=== PATIENT | female | born 1945 | race Caucasian/White ===

== ENCOUNTER 2019-12-25 06:26 | Inpatient (IN) ==
--- NOTE | 2019-12-13 08:27 | ANES ---
Anesthesia Pre Procedure Eval HOME MEDICATIONS alprazolam 1 mg tablet 1 mg PO QID PRN tab 11/08/19 [Last Taken Unknown] carbidopa ER 50 mg-levodopa 200 mg tablet,extended release tab PO 11/08/19 [Last Taken Unknown] diclofenac sodium 1 % topical gel g TP 11/08/19 [Last Taken Unknown] duloxetine 60 mg capsule,delayed release cap PO 11/08/19 [Last Taken Unknown] folic acid 1 mg tablet 1 mg PO DAILY tab 11/08/19 [Last Taken Unknown] losartan 100 mg-hydrochlorothiazide 12.5 mg tablet 1 tab PO DAILY tab 11/08/19 [Last Taken Unknown] meloxicam 7.5 mg tablet 7.5 mg PO DAILY tab 11/08/19 [Last Taken Unknown] methotrexate sodium 2.5 mg tablet 15 mg PO QWEEK tab 11/08/19 [Last Taken Unknown] pantoprazole 40 mg tablet,delayed release 40 mg PO DAILY tab 11/08/19 [Last Taken Unknown] pravastatin 40 mg tablet 40 mg PO DAILY tab 11/08/19 [Last Taken Unknown] prochlorperazine maleate 10 mg tablet 20 mg PO PRN tab 11/08/19 [Last Taken Unknown] selegiline HCl 5 mg capsule 5 mg PO cap 11/08/19 [Last Taken Unknown] tramadol 50 mg tablet 50 mg PO DAILY PRN tab 11/08/19 [Last Taken Unknown] trazodone 150 mg tablet See Rx Instructions .ROUTE .COMPLEX 11/08/19 [Last Taken Unknown] Allergies/Adverse Reactions: Allergies Allergy/AdvReac Type Severity Reaction Status Date / Time cyclosporine Allergy Verified 11/08/19 11:58 Penicillins Allergy Verified 11/08/19 11:58 Sulfa (Sulfonamide Allergy Verified 11/08/19 11:58 Antibiotics) - Planned Procedure Planned Procedure: R Arthroplasty Total Knee Medication List Reviewed:: Yes Allergies Verified: Yes Medical History (Last Reviewed 12/13/19 @ 08:26 by Lopez Alberto CRNA) Allergies Joint pain Pain Panic attack Psoriasis Skin cancer Surgical History (Last Reviewed 12/13/19 @ 08:26 by Lopez Alberto CRNA) History of oophorectomy, unilateral Onset Date: ~1993 Family History (Last Reviewed 12/13/19 @ 08:26 by Lopez Alberto CRNA) Mother Diabetes Heart disease Father Myocardial infarction - Family Anesthesia History Family History:: no untoward family reactions to anesthesia - Airway/Neck/Teeth Denture Type: Full upper - Respiratory Smoking Status: Former smoker Sleep Apnea currently treated: No Sleep Apnea by current assessment: No - Cardiovascular Tolerate Activity: Fair - Gastrointestinal NPO since: mn - Anesthesia Assessment and Plan ASA Class: PS, III Anesthesia Type Plan: Spinal Planned difficult intubation/equipment available: No - adductor canal block
[~2019-12-25 06:26] MED LIST: MORPHINE SULFATE 15 MG TABLET.SA PO PRN; RINGER'S SOLUTION,LACTATED 1,000 ML IV PRN; ROPIVACAINE HCL/PF 100 MG, EPINEPHrine 0.2 MG, KETOROLAC TROMETHAMINE 30 MG in NORMAL S... IJ PRN; TRANEXAMIC ACID 1,000 MG in NORMAL SALINE 100 ML IV PRN; ceFAZolin SODIUM 1 GM VIAL IV PRN
[2019-12-25] MEDS ORDERED: PROPOFOL VIAL IV ONE (06:51)
[2019-12-25] MEDS ORDERED: MIDAZOLAM HCL/PF 5 MG/ML VIAL ONE (06:51)
[2019-12-25] MEDS ORDERED: BUPIVACAINE HCL/EPINEPHRINE 50 ML VIAL ONE (06:52)
[2019-12-25] MEDS ORDERED: ISOPROPYL ALCOHOL 480 APPL BTL MC ONE (07:07)
[2019-12-25] MEDS ORDERED: ceFAZolin SODIUM 1 GM VIAL ONE (07:07)
--- NOTE | 2019-12-25 10:33 | OR ---
Operative Report - Dictated Report Narrative: Date: 12/25/2019 Preoperative diagnosis: Right knee degenerative joint disease. Postoperative diagnosis: Right knee degenerative joint disease. Procedure: Right total knee arthroplasty. Repair of skin tear right lower leg Surgeon: Fortunato Hyde M.D. Ice Handler: Huseyin Prajapati PA-C (provided and essential set of skilled, educated hands that assisted with transfer, positioning, prepping, draping, manipulation, retraction, placement of jigs, injection, insertion of implants, irrigation, closure wounds, and dressings all of which could not be performed by the available surgical crew) Anesthesia: Spinal with regional block and local periarticular joint injection. Complications: Skin tear right lower leg Specimens: Bone. Estimated blood loss: Minimal. Tourniquet time: 73 minutes at 300 millimeters of mercury. Retained implants: Depuy Attune size 5 right lugged cemented posterior stabilized femoral component. Size 5 fixed-bearing cemented tibial platform. 5 by 5 millimeter posterior stabilized cross-linked tibial insert. 35 millimeter medialized patella button. Indications: Mrs. Stephen is a 74-year-old female who has had longstanding right knee pain and arthrosis. This patient was followed in my clinic for period of time with significant complaints of right knee pain consistent with arthritic changes. She had failed conservative measures including, but not limited to, activity modification, passage of time, medications, and other conservative m easures. Patient wished to proceed with surgical treatment. The risks, benefits, and alternatives were discussed in clinic. The risks of , blood clots, bleeding, infection, nerve/tendon blood vessel/ injury, malposition of components, intraoperative fracture, postoperative limited range of motion, persistent pain, failure of components, and need for additional procedures. Patient wished to proceed consent was obtained after answering all questions. Procedure: After marking the correct extremity on the floor, the patient was taken to the operating room. A timeout was performed. IV antibiotics consisting of Ancef were administered prior to the procedure. A regional followed by spinal anesthetic was induced by anesthesia, per my request, on the operative table with all bony prominences well-padded. Fierro catheter was placed, and a bump was placed under the operative side buttock. SCDs and HODAN hose were utilized on the nonoperative leg. A well-padded tourniquet was applied to the operative thigh. The operative leg was then pre-scrubbed with alcohol, prepped, and draped in a standard sterile fashion. After exsanguinating the extremity with an Esmarch bandage, the tourniquet was inflated. After marking out the anterior knee for standard incision centered over the patella, the skin was incised and dissected down to the joint retinaculum. The joint retinaculum was marked out as well as the horizontal axis of the patella, and a standard medial parapatellar arthrotomy was then made. The most proximal aspect of the quadriceps tendon and the patella tendon insertion were protected from release. A partial synovectomy was performed as well as a resection of the infrapatellar fat pad. The distal femoral fat pad proximal to the trochlea was also resected using cautery. The soft tissues were elevated off the medial aspect of the proximal tibia using a Giles elevator ensuring that we did not transect the medial collateral ligament. Upon initial evaluation range of motion was approximately 0 degrees to 125 degrees of flexion. There were signs of advanced arthrosis in the lateral and patellofemoral greater than medial joint spaces. There were large marginal osteophytes which were removed with a rongeur. The knee was hyperflexed and the patella was tucked laterally. Protecting the surrounding soft tissues with Homans, an entry drill was placed down the femoral canal using Whitesides line for guidance into the entry point. The intramedullary femoral alignment ethan was utilized in order to cut the distal femur in 5 degrees of valgus resecting 10 millimeters of bone. Next the distal femur was sized to a size 5. A posterior referencing guide was utilized to place the distal femoral cutting block in 3 degrees of external rotation. This was pinned into place. The rotation was confirmed both visually and based on anatomic landmarks. The 4 in 1 cutting jig of the appropriate size was utilized in order to make all bony cuts. The kendall wing was used to ensure no notching. Retractors were utilized in order to protect surrounding soft tissues. This cut did not result in any excessive notching. We then cut the box centered over the distal femur. This allowed for resection of the anterior and posterior cruciate ligaments. I then turned my attention to the preparation of the tibia. Using an extra medullary tibial alignment ethan, 5 millimeters of bone was resected off the medial articular surface. This was made perpendicular to the mechanical axis of the joint with the alignment ethan centered over the ankle mortise. The alignment ethan was checked and was noted to be parallel to the mechanical axis, centered over the medial one third of the tibial tubercle, paralleling the anterior surface of the tibia. We then turned our attention to the remaining meniscus and soft tissues. These were removed while protecting the surrounding ligaments and soft tissues. The marginal osteophytes off the anterior, posterior, medial, lateral aspects of the femur and tibia were removed. The tibia was sized out to a size 5. Next the tibia was drilled and punched in an externally rotated position. Next the trial femur and a series of tibial inserts were utilized in order to allow for full extension and maximal flexion. It was found that a 5 millimeter insert gave the best range of motion and stability at multiple flexion points as well as at full extension there was less than 2 mm of gapping both medially and laterally. There is minimal anterior translation with the knee at 90 degrees of flexion and no signs of being able to dislocate the knee. The patella was then prepared. The initial thickness was 22 millimeters. This was reamed down to 12 millimeters parallel to the anterior surface of the patella. It was sized out to a size 35 medialized patella button. This was then drilled and trialed. Without any medial restraint the patella tracked appropriately and did not sublux or dislocate. At this point, it was felt these were the appropriate sized implants, and all trials were removed. The standard periarticular joint injection consisting of ropivacaine, Toradol, and epinephrine were injected into the periarticular joint tissues. The bony surfaces were thoroughly irrigated with a pulsatile-suction saline irrigation device. A bone plug from the prior resected anterior chamfer cut was placed into the drill hole at the distal femur. The bony surfaces were then dried in preparation for placement of the implants. The cement was vacuum mixed per the repair clerk's instructions. The cement was placed on the dry bony surfaces and posterior aspect of the implants. The implants were impacted into place, removing all extruded cement. At this point anesthesia administered tranexamic acid per protocol intravenously. The knee was placed in extension with axial loading with the trial insert while the cement cured. Once the cement cured, all remaining extruded cement was removed. The knee was placed through a range of motion with the trial insert to ensure appropriate range of motion and stability. Final range of motion was approximately 0 to 125 degrees. The knee was again thoroughly irrigated with pulsatile saline lavage. The final polyethylene insert was then impacted into place ensuring no retained soft tissues. The remaining periarticular joint injection was injected. A medium Hemovac drain was placed exiting superior laterally. The knee was then placed over a triangle and the arthrotomy was closed with interrupted #1 Vicryl after thoroughly irrigating the joint. The deep and subcutaneous tissues were closed with interrupted 0 and 3-0 Vicryl respectively. When removing the stockinette over the lower leg it was noted that there was a long large skin tear from the mid tibia down to the ankle. It was quite concerning as her skin was very fragile and we repaired what we could with interrupted 4-0 nylon and the remaining exposed tissue was covered with Xeroform and Telfa. There were no exposed tendons or deep structures after closing the proximal and distal portion of the wounds. This appeared to be a sloughing of the skin superficially in the exposed area. The knee skin was closed with a running subcutaneous 3-0 Monocryl and Prineo Dermabond dressing. 4 x 4's, Sof-Rol, and a full leg Bryan wrap were applied. All sponge, needle, blade, and instrument counts were correct prior to closing the wounds. Postoperative condition: The patient was awoken and transferred to the postanesthesia care unit in stable condition. Plan is to be admitted to the inpatient medical/surgical floor postoperatively for 24 hours of IV antibiotics, physical therapy, occupational therapy, and medical comanagement. Patient will be weightbearing as tolerated with range of motion as tolerated. DVT prophylaxis will be with SCDs, HODAN hose, and pharmacological anticoagulation. Anticipated hospital stay is approximately 1-3 days.
[2019-12-25] MEDS ORDERED: ACETAMINOPHEN 500 MG TABLET PO PRN (10:34)
[2019-12-25] MEDS ORDERED: ZOLPIDEM TARTRATE 5 MG TABLET PO PRN (10:34)
[2019-12-25] MEDS ORDERED: MAGNESIUM HYDROXIDE 30 ML UDC PO PRN (10:34)
[2019-12-25] MEDS ORDERED: MORPHINE SULFATE 2 MG/ML DISP.SYRIN IV PRN (10:34)
[2019-12-25] MEDS ORDERED: MAG HYDROX/ALUMINUM HYD/SIMETH 30 ML UDC PO PRN (10:34)
[2019-12-25] MEDS ORDERED: ONDANSETRON HCL/PF 2 MG/ML VIAL IV PRN (10:34)
[2019-12-25] MEDS ORDERED: diphenhydrAMINE HCL 50 MG/ML VIAL IV PRN (10:34)
[2019-12-25] MEDS ORDERED: PROCHLORPERAZINE MALEATE 10 MG TABLET PO PRN (10:36)
--- NOTE | 2019-12-25 10:48 | ANES ---
Anesthesia Procedure Note Procedure Note: ANESTHESIA PROCEDURE NOTE Date of Procedure: 12/25/2019 Time of procedure: 8:10 AM. Performed by: MICHAEL Kamara CRNA, MSN Kennel Manager Dog Track: Carmel Corbett RN. Preprocedure diagnosis: Post knee surgery pain. Post procedure diagnosis: Same. Procedure: Right adductor Canal Block. Indications: Post right total knee arthroplasty pain relief. Findings: See below. Details of the procedure: The patient was brought to OR #4 and placed in supine position. The patient's right femoral area to the knee was prepped with chlorhexidine and using ultrasound guidance the right femoral artery and nerve was identified and then followed to the level of the adductor canal. Lidocaine 1% was infiltrated to the skin of the intended injection site. Under ultrasound guidance the saphenous nerve was approached with visualization of a 4 inch shielded block needle. Once saphenous nerve was identified with proximity to the needle tip, the saphenous nerve was surrounded with 20 mL bupivacaine 0.25% with 1-200,000 epinephrine. Please see radiology/ultrasound report for details and retained images of the procedure. EBL: 0 Fluids: N/A. Specimen: N/A. Post procedure condition: The patient tolerated the procedure well. No complications were noted. Thank you for this consultation. Babak Rubio CRNA, ARNP, MSN
--- NOTE | 2019-12-25 10:48 | ANES ---
Post Anesthesia Discharge - Transfer of Care Transfer of Care handoff given to nurse: Yes - Discharge from PACU Discharge from PACU when meets criteria: Yes - Awake and comfortable.
--- NOTE | 2019-12-25 11:24 | ANES ---
Post Anesthesia Assessment - Vital Signs Vitals: Last Vital Signs Temp 36.0 C 12/25/19 11:05 Pulse 103 H 12/25/19 11:05 Resp 18 12/25/19 11:05 BP 143/67 12/25/19 11:05 Pulse Ox 98 12/25/19 11:05 Airway Patency: Normal - Mental Status Level Of Consciousness: Awake, Alert, Appropriate - Pain Level Pain Score: 0 - N/V Assessment Nausea/Vomiting Presence: None Dehydration:: No
[2019-12-25] MEDS: KETOROLAC TROMETHAMINE 15 MG/ML VIAL IV SCH ×2 (11:31→18:10)
[2019-12-25] MEDS: ALPRAZolam 1 MG TABLET PO PRN (11:31)
[2019-12-25] MEDS: DEXTROSE 5%-LACTATED RINGERS 1,000 ML IV PRN ×2 (11:31→22:27)
[2019-12-25] MEDS: ceFAZolin SODIUM 1 GM in DEXTROSE 5 % IN WATER 100 ML IV SCH ×4 (12:07→19:41)
[2019-12-25] MEDS: oxyCODONE HCL/ACETAMINOPHEN 1 TAB TABLET PO PRN (19:43)
[2019-12-25] MEDS: SENNOSIDES/DOCUSATE SODIUM 1 TAB TABLET PO SCH (21:13)
[2019-12-25] MEDS: CARBIDOPA/LEVODOPA CR 50/200 1 TAB TABLET.SA PO SCH (21:14)
[2019-12-26] MEDS: KETOROLAC TROMETHAMINE 15 MG/ML VIAL IV SCH ×4 (00:49→17:13)
[2019-12-26] MEDS: ceFAZolin SODIUM 1 GM in DEXTROSE 5 % IN WATER 100 ML IV SCH ×2 (00:52)
[2019-12-26] MEDS: oxyCODONE HCL/ACETAMINOPHEN 1 TAB TABLET PO PRN ×3 (01:07→19:17)
[2019-12-26 06:47] LABS: Hematocrit 40.4 % (37.0-47.0); Hemoglobin 12.3 gm/dL (12.5-16.0); Mean Cell Volume 98.3 fl (78-100); Mean Corpuscular Hemoglobin 29.9 pg (27-31); Mean Corpuscular Hgb Conc 30.4 g/dl (32-36); Mean Platelet Volume 10.1 fl (8-12.5); Platelet Count 401 K/mm3 (150-450); Red Blood Count 4.11 M/mm3 (4.2-5.4); Red Cell Distribution Width 15.3 % (11.5-14.0); White Blood Count 9.3 K/mm3 (4.0-10.5)
[2019-12-26] MEDS: PANTOPRAZOLE SODIUM 40 MG TABLET.EC PO SCH (06:51)
[2019-12-26 06:54] LABS: Anion Gap 9.7 mmol/L (6.8-13.8); BUN/Creatinine Ratio 10.3 (9.0-21.6); Calcium * 8.6 mg/dL (7.9-10.9); Estimated Creat Clear 44.9; Potassium 3.7 mmol/L (3.4-4.6)
[2019-12-26] MEDS: DULoxetine HCL 30 MG CAPSULE.SA PO SCH (08:53)
[2019-12-26] MEDS: FOLIC ACID 1 MG TABLET PO SCH (08:53)
[2019-12-26] MEDS: SIMVASTATIN 20 MG TABLET PO SCH (08:54)
[2019-12-26] MEDS: ENOXAPARIN SODIUM 40 MG/0.4 ML SYRG SC SCH (08:54)
[2019-12-26] MEDS: LOSARTAN POTASSIUM 50 MG TABLET PO SCH (08:54)
[2019-12-26] MEDS: ALPRAZolam 1 MG TABLET PO PRN (09:00)
[2019-12-26] MEDS: SELEGILINE HCL 5 MG PO SCH (09:09)
[2019-12-26] MEDS: HYDROCHLOROTHIAZIDE 12.5 MG CAPSULE PO SCH (09:13)
[2019-12-26] MEDS: CARBIDOPA/LEVODOPA CR 50/200 1 TAB TABLET.SA PO SCH ×2 (09:14→21:19)
--- NOTE | 2019-12-26 15:27 | PN ---
Subjective - Date and Time Seen Date: 12/26/19 Time: 15:21 Subjective Narrative: Subjective: Reports mild pain. Per nursing she was having some difficulty swallowing. Was able to transfer with therapy. Voiding without any complications. Denies any nausea or vomiting. Denies calf pain. Slept well. Physical exam: Alert and oriented to person, place and time Right lower extremity: Palpable dorsalis pedis pulse. Sensation grossly intact to light touch. Dressings clean and dry. Able to flex and extend ankle and toes. No excessive drainage. Calf and thigh are soft and nontender. Assessment: Postop day 1 status post right total knee arthroplasty. Plan: Due to the need for pain control, post-operative limited mobility, protection of the surgical site and joint, monitoring of the wound, and the management of chronic medical conditions, she requires continued inpatient care. Continue with physical and occupational therapy weightbearing as tolerated. Continue with anticoagulation. 24 hours postoperative prophylactic antibiotics. Pain control with goal to rely on oral medications. Continue bowel regimen. Will need 6 weeks with walker or assitive device to protect joint while ambulating during the recovery process. Discharge planning. A speech evaluation has been placed today. We also reviewed that her baseline is limited mobility and the goal is to get back to this. Discontinue drain and Fierro catheter. Objective - Vitals Vitals: Last Vital Signs Temp 36.3 C 12/26/19 14:38 Pulse 86 12/26/19 14:38 Resp 18 12/26/19 14:38 BP 128/56 12/26/19 14:38 Pulse Ox 92 L 12/26/19 14:38 - Abnormal Lab Findings Abnormal Lab Findings: Abnormal Lab Results 12/26/19 12/26/19 Range/Units 06:05 06:05 RBC 4.11 L (4.2-5.4) M/mm3 Hgb 12.3 L (12.5-16.0) gm/dL MCHC 30.4 L (32-36) g/dl RDW 15.3 H (11.5-14.0) % Random Glucose 128 H (70-110) mg/dL Cauti Physician Documentation - Urinary Catheter Management Urethral (Fierro) Date of Insertion: 12/25/19 Time of Insertion: 09:04 Date of Removal: 12/26/19 Time of Removal: 06:00 Assessment/Plan - Problems/Diagnosis (1) Parkinsons disease Problem: Chronic (2) Difficulty swallowing Problem: Acute (3) Status post right knee replacement Problem: Acute (4) Anxiety Problem: Chronic (5) Cluster B personality disorder Problem: Chronic (6) Constipation Problem: Chronic (7) COPD (chronic obstructive pulmonary disease) Problem: Chronic (8) Depression Problem: Chronic (9) Dysphagia Problem: Chronic (10) GERD (gastroesophageal reflux disease) Problem: Chronic (11) Hypertension Problem: Chronic (12) Premature atrial contraction Problem: Chronic (13) Psoriasis Problem: Chronic (14) Tremor Problem: Chronic (15) Urge incontinence Problem: Chronic (16) Weakness Problem: Chronic
[2019-12-26] MEDS: SENNOSIDES/DOCUSATE SODIUM 1 TAB TABLET PO SCH (21:19)
[2019-12-27] MEDS: KETOROLAC TROMETHAMINE 15 MG/ML VIAL IV SCH ×2 (00:08→06:01)
[2019-12-27] MEDS: oxyCODONE HCL/ACETAMINOPHEN 1 TAB TABLET PO PRN ×3 (03:14→14:10)
[2019-12-27] MEDS: PANTOPRAZOLE SODIUM 40 MG TABLET.EC PO SCH (06:43)
[2019-12-27] MEDS: DULoxetine HCL 30 MG CAPSULE.SA PO SCH (08:49)
[2019-12-27] MEDS: CARBIDOPA/LEVODOPA CR 50/200 1 TAB TABLET.SA PO SCH (08:49)
[2019-12-27] MEDS: HYDROCHLOROTHIAZIDE 12.5 MG CAPSULE PO SCH (08:51)
[2019-12-27] MEDS: SIMVASTATIN 20 MG TABLET PO SCH (08:51)
[2019-12-27] MEDS: FOLIC ACID 1 MG TABLET PO SCH (08:51)
[2019-12-27] MEDS: LOSARTAN POTASSIUM 50 MG TABLET PO SCH (08:52)
[2019-12-27] MEDS: ENOXAPARIN SODIUM 40 MG/0.4 ML SYRG SC SCH (08:52)
[2019-12-27] MEDS: SELEGILINE HCL 5 MG PO SCH (09:02)
--- NOTE | 2019-12-27 12:10 | DS ---
(1) Parkinsons disease Problem: Chronic (2) Difficulty swallowing Problem: Acute (3) Status post right knee replacement Problem: Acute (4) Anxiety Problem: Chronic (5) Cluster B personality disorder Problem: Chronic (6) Constipation Problem: Chronic (7) COPD (chronic obstructive pulmonary disease) Problem: Chronic (8) Depression Problem: Chronic (9) Dysphagia Problem: Chronic (10) GERD (gastroesophageal reflux disease) Problem: Chronic (11) Hypertension Problem: Chronic (12) Premature atrial contraction Problem: Chronic (13) Psoriasis Problem: Chronic (14) Tremor Problem: Chronic (15) Urge incontinence Problem: Chronic (16) Weakness Problem: Chronic Date of Discharge:: 12/27/19 Hospital Course: Mrs. Stephen was admitted to the floor after undergoing right total knee arthroplasty. She sustained a skin tear in the operating room which was closed as well. Tolerated this well. Was admitted to the floor postoperatively for 24 hours of IV antibiotics, pain control, medical comanagement, and occupational and physical therapy. OT and PT were consulted to assist with activities of daily living and ambulation. Was made weightbearing as tolerated with range of motion as tolerated. Pain was initially controlled with IV regimen. This was transitioned to oral once tolerating a by mouth intake. She does have acute on chronic dysphagia which was evaluated by speech therapy. She was resumed on home diet and medications. A Fierro catheter was inserted in the operating room which was discontinued by postoperative day 1. A drain was placed intraoperatively into the knee which was discontinued on postoperative day 1. Lovenox, SCDs, and HODAN hose were utilized for DVT prophylaxis. Vital signs remained stable to the hospital course. Labs were obtained which showed a final hemoglobin of 12.3 grams. BMP was reviewed and was stable. Physical exami nation throughout the hospital course showed an extremity that had sensation that was intact to light touch, palpable pulses, a benign wound, motor intact to the toes, ankle, and knee. Knee range of motion was approximately 0 degrees to 60 degrees. Due to her multiple medical comorbidities as well as her slow progression with therapy it is elected for her to go to a [place] [facility] facility for additional therapy. Instructions: Continue with weightbearing as tolerated and range of motion as tolerated. Keep dressings on the lower leg. Keep knee covered with Tubigrip and dry. Cover wound while showering. Continue with physical therapy and Occupational Therapy. Resume home diet. Report any fever over 101.5 Fahrenheit, uncontrolled pain, increased drainage, foul odor of drainage, new or increased calf pain or shortness of breath, or any other significant complaints. A 325mg daily aspirin will be started after finishing anticoagulation if not allergic. She needs to return in 1 week for evaluation of her right lower leg wound. If she needs any additional anxiety or insomnia medications the nursing facility should contact her primary care physician. Procedures Performed: see notes below List Procedures: Right total knee arthroplasty, closure of skin tear right lower leg Results and Findings: Lab Pending Results 12/26/19 06:05: WBC 9.3, RBC 4.11 L, Hgb 12.3 L, Hct 40.4, MCV 98.3, MCH 29.9, MCHC 30.4 L, RDW 15.3 H, Plt Count 401, MPV 10.1 12/26/19 06:05: Sodium 135, Plasma Sodium 135, Potassium 3.7, Chloride 101, Carbon Dioxide 28.0, Anion Gap 9.7, BUN 10, Creatinine 0.97, Est GFR (Non-Af Amer) 60, BUN/Creatinine Ratio 10.3, Random Glucose 128 H, Calcium 8.6 Discharge Location: [facility] Disposition: SNF Condition: Good Discharge Activity: Activity as tolerated, Weight bearing Discharge Diet: General/regular food Correction Therapy: Physical Therapy, Occupation Therapy Additional Patient Instructions (free text): To [facility] for SNF, PT and OT to evaluate and treat. Please call and fax discharge orders to [facility]. To see Dr. Hyde next week on Wednesday at 8:30am. Follow up [facility] Orthopedic office appointment on WednesdayJanuary 15 at 10:30am. with provider Huseyin Prajapati Prescriptions (Any new or edited meds): Enoxaparin Sodium [Lovenox] 40 mg SC Q24H #7 disp.syrin Transmission Status: Received by [facility] oxyCODONE HCL/ACETAMINOPHEN [Percocet 5 MG/325 MG] 1 - 2 tab PO Q4H PRN #50 tab PRN Reason: Moderate Pain (Pain Scale 4-6) Transmission Status: Received by [facility] Sennosides/Docusate Sodium [Senokot-S] 2 tab PO HS #60 tab Transmission Status: Received by [facility] traZODone HCL [Trazodone HCl] See Rx Instructions .ROUTE .COMPLEX PRN #30 PRN Reason: Insomnia ALPRAZolam [Xanax] 1 mg PO QID PRN #90 tablet PRN Reason: Anxiety Transmission Status: Sent to [facility] Complete Home Medications List: Complete Home Medication List: alprazolam 1 mg tablet 1 mg PO QID PRN tab 11/08/19 carbidopa ER 50 mg-levodopa 200 mg tablet,extended release 1 tab PO BID 11/08/19 duloxetine 60 mg capsule,delayed release 1 cap PO DAILY 11/08/19 folic acid 1 mg tablet 1 mg PO DAILY tab 11/08/19 losartan 100 mg-hydrochlorothiazide 12.5 mg tablet 1 tab PO DAILY tab 11/08/19 methotrexate sodium 2.5 mg tablet 15 mg PO QWEEK tab 11/08/19 pantoprazole 40 mg tablet,delayed release 40 mg PO DAILY tab 11/08/19 pravastatin 40 mg tablet 40 mg PO DAILY tab 11/08/19 prochlorperazine maleate 10 mg tablet 20 mg PO DAILY PRN tab 11/08/19 selegiline HCl 5 mg capsule 5 mg PO DAILY cap 11/08/19 ALPRAZolam [Xanax] 1 mg PO QID PRN #90 tablet 12/27/19 Enoxaparin Sodium [Lovenox] 40 mg SC Q24H #7 disp.syrin 12/27/19 Sennosides/Docusate Sodium [Senokot-S] 2 tab PO HS #60 tab 12/27/19 oxyCODONE HCL/ACETAMINOPHEN [Percocet 5 MG/325 MG] 1 - 2 tab PO Q4H PRN #50 tab 12/27/19 traZODone HCL [Trazodone HCl] See Rx Instructions .ROUTE .COMPLEX PRN #30 12/27/19 Forms: Patient Portal Registration
[2019-12-27 14:06] VITALS: BP 101/56
== END 2019-12-27 14:18 | DRG 470 ==
LOC: SUR 06:26 → MS 11:11 → INTOOBSV 11:11
PROVIDERS: ADMIT Orthopaedic Surgery; ATTEND Orthopaedic Surgery
DX: J44.9 Chronic obstructive pulmonary disease, unspecified; G47.00 Insomnia, unspecified; K59.09 Other constipation; I49.1 Atrial premature depolarization; S81.811A Laceration without foreign body, right lower leg, initial encounter; F41.8 Other specified anxiety disorders; R13.10 Dysphagia, unspecified; K21.9 Gastro-esophageal reflux disease without esophagitis; G20 Parkinson's disease; E78.00 Pure hypercholesterolemia, unspecified; N39.41 Urge incontinence; I10 Essential (primary) hypertension; M17.11 Unilateral primary osteoarthritis, right knee; L40.9 Psoriasis, unspecified; F60.89 Other specific personality disorders; R53.1 Weakness